=== PATIENT | female | born 1990 | race Caucasian/White ===

== ENCOUNTER 2018-08-11 09:12 | Outpatient (REF) | payer SELFPAY ==
--- NOTE | 2018-08-11 08:30 | PAPFT_PTH ---
PATIENT: Shakira Keating LOC: [facility] U#:[id number] AGE/SX: 27/F ROOM: RE08/11/[address]: CYN Levin : 1990 BED: DIS: 08/11/2018 SPEC #: [id number] RECD: 08/11/18 12:52 STATUS: TITI REQ #: [id number] TREVOR: 08/11/18 08:[address]: Lilia Thapa DEPT: [facility] Cytology RECD BY: Ines Massey ENTERED: 08/11/18 12:52 SP TYPE: PAPFT OTHR DR: Shelly Miller Tissues: 1 - CX/ENDOCX FOR PAP SMEARS Procedures: PAP THIN PREP/UVM Screening Comments: [id number]
== END 2018-08-11 09:32 ==
LOC: LBN 09:12
PROVIDERS: PCP Nurse Practitioner; Visit Provider Nurse Practitioner Family
DX: Z12.4 Encounter for screening for malignant neoplasm of cervix (principal)
CPT/HCPCS: 88142

== ENCOUNTER 2018-12-06 12:15 | Outpatient (REF) | payer BC, SELFPAY ==
[2018-12-06 13:04] LABS: Iron 116 ug/dL (50-175); Total Iron Binding Capacity 269 ug/dL (250-450); Transferrin Sat 43 % (15-50)
[2018-12-06 13:05] LABS: Abs Immature Grans 0.01 k/cumm (0.0-0.09); Absolute Basophil Count 0.02 k/cumm (0.0-0.2); Absolute Eosinophil Count 0.21 k/cumm (0.0-0.7); Absolute Lymphocyte Count 1.16 k/cumm (1.2-3.4); Absolute Monocyte Count 0.46 k/cumm (0.11-0.7); Absolute Neutrophil Count 3.18 k/cumm (1.2-6.7); Basophils % 0.4; Eosinophils % 4.2; HCT 44.9 % (36.0-46.0); HGB 15.6 g/dL (12.0-15.5); Immature Grans % 0.2; Mean Corp. HGB Concentration 34.7 g/dL (32.0-36.0); Mean Corpuscular Hemoglobin 31.6 pg (27.0-33.0); Mean Corpuscular Volume 90.9 fL (80-95); Mean Platelet Volume 10.1 fL (8.0-11.0); Monocytes % 9.1; Neutrophils % 63.1; Platelet Count 263 x1000/uL (130-400); RBC 4.94 m/cumm (4.00-5.20); RBC Distribution Width 12.5 % (11.7-14.6); White Blood Cell Count 5.04 k/cumm (4.4-10.8)
[2018-12-06 13:30] LABS: ALT 20 U/L (12-78); AST 19 U/L (15-37); Albumin 4.5 g/dL (3.4-5.0); Alkaline Phosphatase 66 U/L (46-116); Anion Gap 7.9 mmol/L (3-11); BUN 13 mg/dL (7-18); Bilirubin, Total 0.8 mg/dL (0.2-1.0); CO2 29.1 mmol/L (21.0-32.0); CREATININE 0.93 mg/dL (0.55-1.02); Calcium 9.4 mg/dL (8.5-10.1); Chloride 105 mmol/L (98-107); Ferritin 143 ng/mL (8-388); Glucose 66 mg/dL (70-100); Potassium 4.1 mmol/L (3.5-5.1); Sodium 142 mmol/L (136-145); TSH (W/Ref FT4) 1.24 uIU/mL (0.358-3.74)
[2018-12-07 10:41] LABS: HIV-1/2 Ag & Ab Screen Negative (NEGAT)
[2018-12-07 11:17] LABS: Lyme Ab w Rflx to Lyme Confirm Negative
== END 2018-12-06 12:35 ==
LOC: NCHCN 12:15
PROVIDERS: PCP Nurse Practitioner; Visit Provider Nurse Practitioner
DX: Z00.00 Encounter for general adult medical examination without abnormal findings (principal); Z13.0 Encounter for screening for diseases of the blood and blood-forming organs and certain disorders involving the immune mechanism; Z13.29 Encounter for screening for other suspected endocrine disorder; Z11.4 Encounter for screening for human immunodeficiency virus [HIV]; Z13.228 Encounter for screening for other metabolic disorders
CPT/HCPCS: 80053; 87389; 82728; 83540; 83550; 84443; 85025; 86618

== ENCOUNTER 2019-06-27 17:38 | Emergency (ER) | payer BC, SELFPAY ==
[2019-06-27 17:50] VITALS: BP 119/69; PULSE 77; RESP 16; TEMP 36.8; O2SAT 100
--- NOTE | 2019-06-27 17:56 | ED.GENADUL_ITS ---
Discharge Plan Disposition Patient Disposition: HOME Condition: Stable Discharge Details Chief Complaint: Orthopedic Clinical Impression: Pain of right forearm Primary Care Provider: Margo Guillermo ED Provider: Finn Olivo Home Meds and New Rx's Prescriptions: No Action dextroamphetamine-amphetamine [Adderall] 10 MG tablet 10 mg PO BID RF: 0 naproxen [Naprosyn] 500 MG tablet 500 mg PO Q12H PRN Qty: 30 RF: 3 Mirena 1 EACH intrauterine device 1 ea Intrauterine ONCE Qty: 1 RF: 0 acetaminophen [Tylenol] 325 MG tablet 650 mg PRN RF: 0 Discharge Instructions Additional Instructions: you can take 1000mg tylenol and 600mg ibuprofen every 6 hours for pain as needed if pain continues in a week see your primary care provider try to avoid boxing or heavy lifting with the arm until you are pain free Medical Decision Making 28 yo female comes in with right forearm pain. She states it started 15 days ago while at her boxing gym. Denies other trauma, no rashes or fevesr. Still has pain in the mid right forearm so came here. Has no pain in the hand or wrist on palpation and both have full rom with intact sensation and pulses. no pain in the elbow. Suspect contusion vs tendonitis,but will xray to eval for fx xray negative on my read. Advised f/u with pcp if pain continues as she may need mri or further outaptient testing Differential Diagnosis contusion, fx, tendonitis Imaging Data Radiologic Study: Attestation: I personally reviewed and interpreted this imaging study as follows: Imaging: X-Ray My impression: no acute findings HPI General Mode of arrival: ambulatory . Date/Time Provider Initiated Documentation: 06/27/19 17:47 . Limitations to Documentation: no limitations . Information obtained by: patient . History of Present Illness 28 year old F presents to the emergency department with the chief complaint of right forearm pain, described as moderate, Quality is described as aching, and is localized to the right and upper extremity. Patient started experiencing this day(s) (15) No relieving factors improve symptom(s), No exacerbating factors reported . Related Data Home Medications Medication Instructions Recorded Confirmed acetaminophen [Tylenol] 650 mg PRN 03/03/14 06/27/19 dextroamphetamine-amphetamine 10 mg PO BID tab-cap 05/16/17 06/27/19 [Adderall 10 Mg Tablet] naproxen [Naprosyn] 500 mg PO Q12H PRN #30 tab-cap 05/16/17 06/27/19 levonorgestrel [Mirena] 1 ea INTRAUTERINE ONCE #1 implant 08/25/17 06/27/19 Previous Rx's Medication Instructions Recorded levonorgestrel [Mirena] 1 ea INTRAUTERINE ONCE #1 implant 08/25/17 Allergies Allergy/AdvReac Type Severity Reaction Status Date / Time Iodine and Iodide Containing Allergy Unverified 06/27/19 17:52 Produc SHRIMP Allergy Intermediate UPSET Uncoded 06/27/19 17:52 STOMACH General Stated Complaint: Orthopedic ANJELICA: 4 Review of Systems Review of Systems All systems reviewed & are unremarkable except as noted in HPI and below Constitutional Denies weakness Cardiovascular Denies chest pain and Denies dyspnea Respiratory Denies cough and Denies dyspnea Gastrointestinal Denies nausea and Denies vomiting Integumentary/Breasts Denies rash Neurologic Denies weakness Endocrine Denies heat intolerance FORMERLY [facility] Medical History (Updated 08/11/18 @ 09:01 by Lilia Thapa NP) IUD surveillance (Acute 05/10/16) Family History Mother No problems noted. Social History Smoking/Tobacco Use Status: Never Drug use: Never Exam Const General: no acute distress Orientation: alert HENMT Head: normal to inspection Ears: external ears normal General nose exam: external nose normal Mouth: moist mucous membranes Eyes General: appearance normal, both eyes and all related structures Neck Neck: normal visual inspection Resp Effort & Inspection: normal respiratory effort and able to speak in complete sentences Cardio Rate: regular rate Skin General skin exam: no rashes or lesions noted Neuro General: alert and oriented x3 Extrem General: normal to inspection Psych Mental Status: mental status grossly normal Course Vital Signs Temperature 36.8 C 06/27/19 17:50 Pulse 77 06/27/19 17:50 Respiratory Rate 16 06/27/19 17:50 Blood Pressure 119/69 06/27/19 17:50 Pulse Oximetry 100 06/27/19 17:50 Temperature 36.8 C 06/27/19 17:50 Temperature Source Skin 06/27/19 17:50 Pulse 77 06/27/19 17:50 Respiratory Rate 16 06/27/19 17:50 Respiratory Effort Non-Labored 06/27/19 17:50 Blood Pressure 119/69 06/27/19 17:50 Blood Pressure Position Sitting 06/27/19 17:50 Pulse Oximetry 100 06/27/19 17:50 Oxygen Delivery Method Room Air 06/27/19 17:50 Oxygen Flow Rate 0 06/27/19 17:50 Pain Level 7 06/27/19 17:50
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
== END 2019-06-27 18:35 | disposition home or self-care (01) ==
PROVIDERS: Emergency Provider Emergency Medicine; PCP Nurse Practitioner Family
DX: M79.631 Pain in right forearm (principal)
CPT/HCPCS: 99283; 73090

== ENCOUNTER 2019-09-18 13:43 | Outpatient (CLI) | payer BC, SELFPAY ==
[2019-09-18 14:39] LABS: HCT 42.1 % (36.0-46.0); HGB 14.6 g/dL (12.0-15.5); Mean Corp. HGB Concentration 34.7 g/dL (32.0-36.0); Mean Corpuscular Hemoglobin 31.6 pg (27.0-33.0); Mean Corpuscular Volume 91.1 fL (80-95); Mean Platelet Volume 9.5 fL (8.0-11.0); Platelet Count 269 x1000/uL (130-400); RBC 4.62 m/cumm (4.00-5.20); RBC Distribution Width 12.4 % (11.7-14.6); White Blood Cell Count 6.37 k/cumm (4.4-10.8)
== END 2019-09-18 14:03 ==
PROVIDERS: PCP Nurse Practitioner Family; Visit Provider Obstetrics & Gynecology
DX: Z30.2 Encounter for sterilization (principal); Z01.818 Encounter for other preprocedural examination; Z01.812 Encounter for preprocedural laboratory examination
CPT/HCPCS: 36415; 85027; 85014; 85018

== ENCOUNTER 2019-09-19 07:39 | Day surgery (SDC) | payer BC, SELFPAY ==
[2019-09-19 08:06] VITALS: BP 112/75; PULSE 75; RESP 16; TEMP 37.2; O2SAT 98
[2019-09-19] MEDS: Lactated Ringers 1,000 ML 125 ML IV (08:40)
[2019-09-19] MEDS: Scopolamine 1 MG/3 DAYS PATCH TD (09:40)
--- NOTE | 2019-09-19 10:15 | FALL_PTH ---
PATIENT: Shakira Keating LOC: [facility] U#:[id number] AGE/SX: 28/F ROOM: RE09/19/[address]: Toan Lott MD : 1990 BED: DIS: 09/19/2019 SPEC #: [id number] RECD: 09/19/19 12:54 STATUS: TITI REQ #: [id number] TREVOR: 09/19/19 10:[address]: Toan Lott DEPT: Surgical Specimen RECD BY: Ines Massey ENTERED: 09/19/19 12:55 SP TYPE: Fall OTHR DR: Margo Guillermo Tissues: 1 - FALLOPIAN TUBE (STERILIZATION) 2 - FALLOPIAN TUBE (STERILIZATION) Procedures: GROSS AND MICRO LEVEL 2 Comments: [id number]
[2019-09-19] MEDS: Bupivacaine 0.25% Pres-Free 30 ML VIAL (10:30)
[2019-09-19 10:39] VITALS: BP 113/62; PULSE 67; RESP 16; TEMP 36.9; O2SAT 97
[2019-09-19 10:44] VITALS: BP 113/62; PULSE 55; RESP 17; TEMP 36.9; O2SAT 98
[2019-09-19 10:49] VITALS: BP 107/63; PULSE 54; RESP 16; TEMP 36.9; O2SAT 97
[2019-09-19 11:04] VITALS: BP 110/70; PULSE 64; RESP 16; TEMP 36.7; O2SAT 100
[2019-09-19 11:45] VITALS: BP 113/71; PULSE 60; RESP 16; TEMP 37; O2SAT 99
--- NOTE | 2019-09-19 15:17 | W.PM.OP ---
Date of service: 09/19/19 Time of Service: 15:17 Operative Note Operative Note DATE OF PROCEDURE: 09/19/19 PRE-OP DIAGNOSIS: Sterilization POST-OP DIAGNOSIS: same PROCEDURE: Laparoscopic bilateral salpingectomy SURGEON: Toan Lott ANESTHESIA: MAXIMILIANO ESTIMATED BLOOD LOSS: 10 PATHOLOGY: other (Bilateral fallopian tubes) COMPLICATIONS: None Patient was transported to: PACU Patient's condition: stable Findings: 1. Normal-appearing uterus tubes and ovaries. 2. 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 The patient was prepped and draped in usual sterile manner. The skin and subcutaneous tissues at the umbilicus were infiltrated with 0.25% Marcaine solution. A small infraumbilical skin incision was then made with a #15 blade scalpel. Sharp dissection was carried down to the underlying layer fascia. The fascia was grasped and elevated with 2 Marcy clamps and incised sharply with a scalpel. The peritoneum was entered sharply with a hemostat. T so wo S retractors were placed and 2 sutures of 0 Vicryl were placed on either side of the fascial incision. A 10 mm balloon port was placed. The abdomen was insufflated to approximately 14 mmHg with carbon dioxide. Two 5 mm ports were placed under direct visualization in the right lower and right upper quadrant. The right fallopian tube was grasped and dissection was carried across the mesosalpinx with the LigaSure device. Dissection was carried to the proximal fallopian tube which was transected. The fallopian tube was removed from the abdomen. Attention was then turned to the opposite side where similar procedure was carried out. Excellent hemostasis noted. Both fallopian tubes were submitted and off the field to pathology. The 5 mm ports were removed under direct visualization. The abdomen was desufflated. The 10 mm port was removed. The fascia at the umbilicus was closed with 2 previously placed sutures of 0 Vicryl. 2 additional sutures of 0 Vicryl were used to reinforce the repair. The skin incisions were each closed with interrupted sutures of 4 Monocryl and Dermabond was applied. The procedure concluded at this point. Sponge, lap, and is needle counts were correct at conclusion of the procedure and the patient was transferred to PACU in stable condition.
== END 2019-09-19 12:38 | disposition home or self-care (01) ==
PROVIDERS: PCP Nurse Practitioner Family; Visit Provider Obstetrics & Gynecology
PROC: (CPT 58661; principal; 2019-09-19 09:15)
DX: Z30.2 Encounter for sterilization (principal)
CPT/HCPCS: 58661; 81025; 88302; J1885; J2405; J3010

== ENCOUNTER 2019-12-07 10:43 | Outpatient (REF) | payer BC, SELFPAY ==
[2019-12-07 13:32] LABS: Abs Immature Grans 0.02 k/cumm (0.0-0.09); Absolute Basophil Count 0.02 k/cumm (0.0-0.2); Absolute Eosinophil Count 0.21 k/cumm (0.0-0.7); Absolute Lymphocyte Count 1.46 k/cumm (1.2-3.4); Absolute Monocyte Count 0.46 k/cumm (0.11-0.7); Absolute Neutrophil Count 3.94 k/cumm (1.2-6.7); Basophils % 0.3; Eosinophils % 3.4; HCT 42.8 % (36.0-46.0); HGB 14.6 g/dL (12.0-15.5); Immature Grans % 0.3 %; Lymphocytes % 23.9; Mean Corp. HGB Concentration 34.1 g/dL (32.0-36.0); Mean Corpuscular Hemoglobin 31.1 pg (27.0-33.0); Mean Corpuscular Volume 91.1 fL (80-95); Mean Platelet Volume 10.1 fL (8.0-11.0); Monocytes % 7.5; Neutrophils % 64.6; Platelet Count 276 x1000/uL (130-400); White Blood Cell Count 6.11 k/cumm (4.4-10.8)
[2019-12-07 14:10] LABS: ALT 35 U/L (14-59); AST 18 U/L (15-37); Alkaline Phosphatase 59 U/L (46-116); Anion Gap 5.5 mmol/L (3-11); BUN 21 mg/dL (7-18); Bilirubin, Total 0.6 mg/dL (0.2-1.0); CO2 28.5 mmol/L (21.0-32.0); CREATININE 0.93 mg/dL (0.55-1.02); Calculated LDL 62 mg/dL; Chloride 107 mmol/L (98-107); Cholesterol 134 mg/dL (<200); Glucose 86 mg/dL (74-106); HDL Cholesterol 64 mg/dL (40-60); Potassium 4.2 mmol/L (3.5-5.1); Sodium 141 mmol/L (136-145); Total Protein 6.9 g/dL (6.4-8.2); Triglyceride 44 mg/dL (<150); Vitamin B12 423 pg/mL (193-986)
[2019-12-07 14:22] LABS: ESR 9 mm/hr (0-20)
[2019-12-07 14:36] LABS: C-Reactive Protein 0.13 mg/dL (0.0-0.3)
== END 2019-12-07 11:03 ==
LOC: NCHCN 10:43
PROVIDERS: PCP Nurse Practitioner Family; Visit Provider Nurse Practitioner Family
DX: R53.83 Other fatigue (principal); Z00.00 Encounter for general adult medical examination without abnormal findings; Z13.220 Encounter for screening for lipoid disorders; Z13.228 Encounter for screening for other metabolic disorders
CPT/HCPCS: 80053; 80061; 85652; 82607; 85025; 86140

== ENCOUNTER 2020-02-13 08:50 | Outpatient (CLI) | payer BC, SELFPAY ==
[2020-02-15 08:35] LABS: COVID-19 RT-PCR Result Not Detected
== END 2020-02-13 09:10 ==
PROVIDERS: PCP Nurse Practitioner Family; Visit Provider Specialist/Technologist Athletic Trainer
DX: Z20.828 Contact with and (suspected) exposure to other viral communicable diseases (principal); Z11.59 Encounter for screening for other viral diseases; R51 Headache
CPT/HCPCS: 87449; U0003

== ENCOUNTER 2020-03-04 01:21 | Outpatient (CLI) | payer BC, SELFPAY ==
--- NOTE | 2020-03-04 | DI.MRI_ITS ---
EXAM: MR BRAIN WO CLINICAL HISTORY: ATYPICAL HEADACHE, R51, NEW ONSET TECHNIQUE: Multiplanar multisequence MRI of the brain was performed. COMPARISON: No exams were available for comparison FINDINGS: The ventricular system is normal in appearances. No signal abnormality identified in the brain. The orbital and temporal bone structures appears intact as does the pituitary. Diffusion weighted imaging shows No evidence of infarction. Susceptibility weighted imaging shows no evidence of intracranial hemorrhage. There is normal flow void in the [place] of Agustin vasculature. IMPRESSION: Normal brain MRI DATA REPOSITORY:
== END 2020-03-04 01:41 ==
PROVIDERS: PCP Nurse Practitioner Family; Visit Provider Specialist/Technologist Athletic Trainer
DX: R51 Headache (principal)
CPT/HCPCS: 70551

== ENCOUNTER 2020-03-14 01:44 | Outpatient (CLI) | payer BC, SELFPAY ==
--- NOTE | 2020-03-14 08:02 | DI.RAD_ITS ---
EXAM: XR CERVICAL SPINE COMP 4-5V CLINICAL HISTORY: ATYPICAL HEADACHE, R51. TECHNIQUE: 2D digital imaging was performed. COMPARISON: No exams were available for comparison FINDINGS: BONES: No fracture or destructive lesion. The vertebral bodies and posterior elements are intact. DISKS: Intervertebral disc spaces are maintained. ALIGNMENT: Cervical spinal alignment is within normal limits. The odontoid and atlantoaxial articulat ions are normal. SOFT TISSUE: Normal. The lung apices are clear. IMPRESSION: Unremarkable radiographs of the cervical spine. DATA REPOSITORY: RADIATION DOSE DELIVERED:
== END 2020-03-14 02:04 ==
PROVIDERS: PCP Nurse Practitioner Family; Visit Provider Nurse Practitioner Family
DX: R51 Headache (principal)
CPT/HCPCS: 72050

== ENCOUNTER 2020-10-14 11:30 | Outpatient (REF) | payer BC, SELFPAY ==
--- NOTE | 2020-10-14 10:30 | PAPFT_PTH ---
PATIENT: Shakira Keating LOC: [facility] U#:[id number] AGE/SX: 29/F ROOM: RE10/14/[address]: CYN Levin : 1990 BED: DIS: 10/14/2020 SPEC #: [id number] RECD: 10/14/20 12:57 STATUS: TITI REQ #: [id number] RTEVOR: 10/14/20 10:[address]: Lilia Thapa DEPT: [facility] Cytology RECD BY: Ines Massey ENTERED: 10/14/20 12:57 SP TYPE: PAPFT OTHR DR: Margo Guillermo Tissues: 1 - CX/ENDOCX FOR PAP SMEARS Procedures: PAP THIN PREP/[facility]VM Screening Comments: [id number] ([facility])
== END 2020-10-14 11:50 ==
LOC: LBN 11:30
PROVIDERS: PCP Nurse Practitioner Family; Visit Provider Nurse Practitioner Family
DX: Z12.4 Encounter for screening for malignant neoplasm of cervix (principal)
CPT/HCPCS: 88142

== ENCOUNTER 2021-04-03 12:54 | Outpatient (CLI) | payer BC, SELFPAY ==
--- NOTE | 2021-04-03 | DI.RAD_ITS ---
Exam(s) XR ANKLE LT COMPLETE EXAM: XR ANKLE LT COMPLETE CLINICAL HISTORY: INJURY OF UNSPECIFIED BODY REGION; SEQUELAE, T14.8XXS TECHNIQUE: 2D digital imaging was performed. COMPARISON: No exams were available for comparison FINDINGS: BONES: No acute fracture is present. No bony destructive lesion is seen. JOINTS:The ankle mortise is normally aligned. SOFT TISSUE: Soft tissue swelling laterally. IMPRESSION: No acute fracture or dislocation. Soft tissue swelling of the ankle laterally. DATA REPOSITORY: RADIATION DOSE DELIVERED:
== END 2021-04-03 13:14 ==
PROVIDERS: PCP Nurse Practitioner Family; Visit Provider Family Medicine
DX: M25.572 Pain in left ankle and joints of left foot (principal); M79.89 Other specified soft tissue disorders
CPT/HCPCS: 73610

== ENCOUNTER → 2021-08-21 03:26 | Outpatient (CLI) | payer BC, SELFPAY ==
--- NOTE | 2021-08-21 | DI.MRI_ITS ---
Exam(s) MR LOWER JOINT LT WO EXAM: MR LOWER JOINT LT WO CLINICAL HISTORY: LT ANKLE PAIN,M25.572 TECHNIQUE: Multiplanar multisequence MRI was performed without intravenous contrast. COMPARISON: CR XR ANKLE LT COMPLETE from 04/03/2021 CR XR ANKLE LT COMPLETE from 04/03/2021 FINDINGS: BONES/JOINTS: No fracture or contusion pattern. No bone lesions identified. The talar dome is smooth. The ankle mortise is maintained. No joint effusion is present. LIGAMENTS: The tibiofibular and calcaneofibular ligaments are intact. The talofibular ligaments are i ntact. The deltoid ligament is intact. The syndesmosis is unremarkable. Sinus tarsi is normal. MUSCULOTENDINOUS STRUCTURES: Achilles tendon: There does appear to be minimal hyperintense signal on the sagittal STIR images in t he Achilles tendon at its insertion site. There is a small amount of fluid seen in the retrocalcanea l bursa. There also appears to be minimal increased signal in the posterior to the tendon. 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 Plantar fascia: Unremarkable. Anterior Extensor tendons: Unremarkable. Posterior Tibialis: There is a 1 x 1.2 cm area adjacent to or comprising the posterior tibialis tendo n near its insertion onto the navicular. This area is isointense to muscle on the T1 and T2 weighted images. There is minimal associated edema on the T2 weighted images. On the plain film there does not appear to be an accessory ossicle in this region. Flexor Digitorum longus: Unremarkable. Flexor Hallucis longus: Unremarkable. Peroneus longus: Unremarkable. Peroneus brevis:Unremarkable. SOFT TISSUES: Unremarkable. OTHER FINDINGS: None. IMPRESSION: 1. 1 x 1.2 cm area adjacent to a comprising the distal posterior tibialis tendon near its insertion o nto the navicular. Differential considerations include partial tear of the posterior tibialis tendon , tendinosis, deltoid ligament sprain/fibrosis. X-ray of the foot may be obtained for further evalua tion. Please correlate with patient's site of pain. 2. 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 DATA REPOSITORY:
== END ==
PROVIDERS: PCP Nurse Practitioner Family; Visit Provider Orthopaedic Surgery
DX: M25.572 Pain in left ankle and joints of left foot (principal); R93.6 Abnormal findings on diagnostic imaging of limbs
CPT/HCPCS: 73721

== ENCOUNTER 2021-11-12 11:43 | Outpatient (REF) | payer BC, SELFPAY ==
--- NOTE | 2021-11-12 10:30 | PAPFT_PTH ---
PATIENT: Shakira Keating LOC: [facility] U#:[id number] AGE/SX: 31/F ROOM: RE11/12/[address]: CYN Levin : 1990 BED: DIS: 11/12/2021 SPEC #: [id number] RECD: 11/12/21 12:49 STATUS: TITI REQ #: [id number] TREVOR: 11/12/21 10:[address]: Lilia Thapa DEPT: [facility] Cytology RECD BY: Ines Massey ENTERED: 11/12/21 12:49 SP TYPE: PAPFT OTHR DR: Margo Guillermo Tissues: 1 - CX/ENDOCX FOR PAP SMEARS Procedures: PAP THIN PREP/UVM Screening HPV DNA PROBE Comments: [id number]
== END 2021-11-12 11:44 | disposition home or self-care (01) ==
LOC: LBN 11:43
PROVIDERS: PCP Nurse Practitioner Family; Visit Provider Nurse Practitioner Family
DX: Z12.4 Encounter for screening for malignant neoplasm of cervix (principal); Z11.51 Encounter for screening for human papillomavirus (HPV)
CPT/HCPCS: 88142; 87624

== ENCOUNTER 2021-11-17 01:00 | Outpatient (CLI) | payer BC, SELFPAY ==
--- NOTE | 2021-11-17 09:17 | DI.MAMMO_ITS ---
Exam(s) MAMMO SCREENING EXAM: MAMMO SCREENING CLINICAL HISTORY: screening - + Fam History TECHNIQUE: Bilateral full field digital CC and MLO mammographic images were obtained with 3D tomosyn thesis and utilizing computer aided detection (CAD). COMPARISON: None. FINDINGS: Masses/Architectural Distortion: None seen. Microcalcifications: No suspicious pleomorphic-type are seen. Skin Thickening/Nipple Retraction: None. IMPRESSION: 1. No significant interval change with no specific features of malignancy noted. 2. Unless there is more urgent need, screening mammography is recommended, as per [place] [employer] guidelines. BI-RADS Category 1 - Negative Breast Density - Category D - Extremely dense Breast density category C or D implies that the patient has dense breast tissue. Dense breast tissue is very common and is not abnormal but dense breast tissue can make it harder to find cancer on a ma mmogram. Also, dense breast tissue may increase their breast cancer risk. This information about the result of the mammogram report was provided to the patient to raise their awareness. Use this report when you speak with the patient about their risks for breast cancer, which includes their family hist ory. At that time, you may recommend for more screening tests (Ultrasound or MRI) as they might be us eful based on their risk. A negative radiographic report should not delay biopsy if a dominant or clinically suspicious mass is present. Up to ten percent of cancers are not identified on mammography. A negative report may reinforce clinical impression. Adenosis and dense breasts may obscure an underlying neoplasm. False positive reports average 6 to 10%. Patient will receive a letter notifying them of these results.
== END 2021-11-17 01:20 ==
PROVIDERS: PCP Nurse Practitioner Family; Visit Provider Nurse Practitioner Family
DX: Z12.31 Encounter for screening mammogram for malignant neoplasm of breast (principal); R92.8 Other abnormal and inconclusive findings on diagnostic imaging of breast
CPT/HCPCS: 77063; 77067

== ENCOUNTER 2023-07-27 16:44 | Outpatient (REF) | payer BC, OTHER, SELFPAY ==
[2023-07-27 17:24] LABS: HCT 43.8 % (36.0-46.0); HGB 15.2 g/dL (11.2-15.7); MCH 31.7 pg (27.0-33.0); MCHC 34.7 % (32.0-36.0); MCV 91 fL (80-95); MPV 10.1 fL (8.0-11.0); Platelet Count 292 10^3/uL (130-400); RBC 4.79 10^6/uL (3.93-5.22); RDW 11.8 % (11.7-14.6); RDW-SD 39.6 fL; WBC 6.61 10^3/uL (4.4-10.8)
[2023-07-27 18:05] LABS: ALT 23 U/L (14-59); AST 15 U/L (15-37); Albumin 4.2 g/dL (3.4-5.0); Alkaline Phosphatase 57 U/L (46-116); Anion Gap 8.6 mmol/L (3-11); BUN 24 mg/dL (7-18); Bilirubin, Total 0.5 mg/dL (0.2-1.0); CO2 26.4 mmol/L (21.0-32.0); Calcium 9.2 mg/dL (8.5-10.1); Chloride 103 mmol/L (98-107); Estimated GFR 77.24 (mL/min/1.73m2); Glucose 101 mg/dL (74-106); Sodium 138 mmol/L (136-145); TSH (W/Ref FT4) 1.42 uIU/mL (0.36-3.74); Total Protein 7.3 g/dL (6.4-8.2)
[2023-07-27 18:07] LABS: Iron 108 ug/dL (50-170); Total Iron Binding Capacity 267 ug/dL (250-450); Transferrin Sat 40 % (15-50)
[2023-07-29 11:42] LABS: Lyme Ab w Rflx to Lyme Confirm Negative (Negative)
[2023-07-31 18:18] LABS: Anaplasma phagocytophilum Negative (Negative); B. miyamotoi PCR Negative (Negative); Babesia divergens/MO-1 Negative (Negative); Babesia duncani Negative (Negative); Babesia microti Negative (Negative); Ehrlichia chaffeensis Negative (Negative); Ehrlichia ewingii/canis Negative (Negative); Ehrlichia muris eauclairensis Negative (Negative)
== END 2023-07-27 16:45 | disposition home or self-care (01) ==
LOC: NCHCN 16:44
PROVIDERS: PCP Nurse Practitioner Family; Visit Provider Nurse Practitioner Family
DX: R53.83 Other fatigue (principal)
CPT/HCPCS: 80053; 85027; 87798; 83540; 83550; 84443; 86618

== ENCOUNTER 2023-10-10 19:22 | Emergency (ER) | payer OTHER, SELFPAY ==
[2023-10-10 19:24] VITALS: BP 141/83; PULSE 106; RESP 17; TEMP 36.8; O2SAT 100
--- NOTE | 2023-10-10 20:02 | ED.GENADUL_ITS ---
Discharge Plan Disposition Patient Disposition: Home Discharge Details Clinical Impression: Abscess Primary Care Provider: Margo Guillermo ED Provider: Tarun Olivo Home Meds and New Rx's Prescriptions: New cephalexin 500 mg capsule 500 mg PO QID 10 Days Qty: 40 0RF doxycycline hyclate 100 mg tablet 100 mg PO BID 10 Days Qty: 20 0RF No Action multivitamin Tablet 1 tab PO DAILY naproxen [Naprosyn] 500 mg tablet 500 mg PO Q12H PRN Qty: 30 0RF Hold Instructions: Pt Stopped/Never Started dextroamphetamine-amphetamine [Adderall] 10 mg tablet 10 mg PO BID Rx Instructions: administer doses at least 4-6 hours apart acetaminophen [Tylenol] 325 MG tablet 650 mg PO PRN Discharge Instructions Instructions: Abscess (ED) Additional Instructions: You are seen in the emergency department for an abscess on your left elbow. We performed an incision and drainage and got a small amount of pus out of the area. We applied a bandage. Change the bandage once to twice daily and keep the area clean and dry. Take the antibiotics for the full course even if you start to feel better. Follow-up with your primary care doctor. Return if you develop worsening symptoms. Medical Decision Making 32-year-old female presents with an abscess on the left elbow. Unclear etiology. She is adamant that she does not have an STI and clinically does not appear to be gonococcal rash or infection so no role for testing for this at this time especially given no STI type symptoms. Performed an incision and drainage after verbally consenting the patient. Got a small amount of pus and some blood out of the area. Applied a clean bandage. Will start on antibiotics. Not in the distribution of the olecranon bursa so I do not think that this is an infected olecranon bursitis. Not circumferential and no pain with ranging of the elbow so do not think that this is related to an elbow or septic joint. Patient agreeable to going home on oral antibiotics. Will discharge with primary care follow-up. HPI General Date/Time Provider Initiated Documentation: 10/10/23 19:34 . Limitations to Documentation: no limitations . Information obtained by: patient . HPI Narrative: 32-year-old female presents with a rash/abscess on her left elbow. Says this been going on for the last few days. She got a tattoo a few weeks ago and had a full body rash after this. It was not on the same extremity. She does not notice any other injury to the left elbow. She does not have pain with moving the elbow and just has the abscess near the left outer edge of the elbow. No fevers or chills. Endorses some weakness but denies any other systemic symptoms. No fevers. No dysuria or frequency or any vaginal bleeding or discharge. She says she is in a monogamous relationship and she has no concerns about sexually transmitted infections. Related Data Home Medications Medication Instructions Recorded Confirmed acetaminophen 325 mg tablet 650 mg PO PRN 03/03/14 10/10/23 (Tylenol) naproxen 500 mg tablet (Naprosyn) 500 mg PO Q12H PRN #30 tab-caps 11/19/20 10/10/23 dextroamphetamine-amphetamine 10 10 mg PO BID 03/17/21 10/10/23 mg tablet (Adderall) multivitamin 1 tab PO DAILY 12/16/22 10/10/23 cephalexin 500 mg capsule 500 mg PO QID 10 days #40 caps 10/10/23 doxycycline hyclate 100 mg tablet 100 mg PO BID 10 days #20 tabs 10/10/23 Previous Rx's Medication Instructions Recorded naproxen 500 mg tablet (Naprosyn) 500 mg PO Q12H PRN #30 tab-caps 11/19/20 cephalexin 500 mg capsule 500 mg PO QID 10 days #40 caps 10/10/23 doxycycline hyclate 100 mg tablet 100 mg PO BID 10 days #20 tabs 10/10/23 Allergies Allergy/AdvReac Type Severity Reaction Status Date / Time diclofenac Allergy Verified 10/10/23 19:52 Iodine and Iodide Containing Allergy Verified 10/10/23 19:52 Produc SHRIMP Allergy Intermediate UPSET Uncoded 10/10/23 19:52 STOMACH General Stated Complaint: GenMedical ANJELICA: 4 Review of Systems Constitutional Constitutional: Denies chills, Denies fever(s), Denies headache(s) and Reports weakness Eyes Eyes: Denies change in vision ENT Ears, Nose, Mouth, and Throat: Denies headache(s) and Denies odynophagia Cardiovascular Cardiovascular: Denies chest pain and Denies dyspnea Respiratory Respiratory: Denies dyspnea Gastrointestinal Gastrointestinal: Denies abdominal pain, Denies diarrhea, Denies nausea, Denies odynophagia and Denies vomiting Genitourinary Genitourinary: Denies dysuria Musculoskeletal Musculoskeletal: Denies myalgias Integumentary/Breasts Skin/Breast: Reports other (abscess near left elbow) Neurologic Neurologic: Denies behavioral changes, Denies headache(s) and Reports weakness Psychiatric Psychiatric: Denies behavioral changes Endocrine Endocrine: Denies heat intolerance Hematologic/Lymphatic Hematologic/Lymphatic: Denies lymphadenopathy PFSH All Active Problems Abscess (Acute) Family history of breast cancer (Acute) Migraine headache without aura (Acute) Status post tubal ligation (Acute) Medical History ADHD Surgical History H/O wisdom tooth extraction Family History Maternal Aunt Breast cancer Dx in her 30's Maternal Aunt Breast cancer Paternal Aunt Breast cancer Social History Smoking/Tobacco Use Status: Never Smoking risk assessment performed?: Yes Alcohol Intake: current Alcohol Intake frequency: a few times a week Alcohol type: wine Drug use: Occasionally Substance use type: marijuana Details: alcohol: t-1, one glass wine, marijuana: t-2, hit Household members: significant other and other current occupation: Nurse Pets and animals: Yes What type of physical activity do you participate in: walking Seatbelt use: always Do you feel safe at home: Yes Do you feel safe in your relationship?: Yes Female Reproductive History Menstrual Age of Menarche: 16 Duration of menses: 8-10 days control method: permanent sterilization History History 0 Para Hx # Term Pregnancies Multiple births Hx # Pregnancies Ectopic pregnancies AB induced Hx Number of Living Children AB spontaneous Exam Const General: cooperative Nutritional Appearance: average body habitus Orientation: alert, awake and oriented x3 HENMT Head: normal to inspection Ears: external ears normal Mouth: moist mucous membranes Eyes Pupils: PERRL EOM: EOM intact bilaterally and No nystagmus Neck Neck: full ROM and no tracheal deviation Chest Chest: normal inspection of the chest Resp Auscultation: clear to auscultation bilaterally Cardio Rate: regular rate Rhythm: regular rhythm GI Inspection: normal to inspection Palpation: soft, no guarding, not rigid and nontender Back/Spine/Pelvis Back: No no CVA tenderness Thoracic/Lumbar Spine: thoracic and lumbar spine normal to inspection Skin Other: Small area of redness fluctuance warmth and tenderness over the left lateral elbow. Not in the distribution of the olecranon bursa. Not circumferential around the elbow. Able to fully range the elbow without pain. Sensation motor and circulation intact in the bilateral upper extremities. No other rashes noted on examination. Neuro General: patient alert, patient awake and patient oriented x3 Cranial Nerves: CN's II-XI intact bilaterally, PERRL and no nystagmus Cognition: normal cognition Motor: muscle tone normal throughout and strength 5/5 throughout Sensory Exam: no sensory deficits noted Extrem General: normal to inspection Course Vital Signs Vital signs: Vital Signs Temperature 36.8 C 10/10/23 19:24 Pulse 106 H 10/10/23 19:24 Respiratory Rate 17 10/10/23 19:24 Blood Pressure 141/83 H 10/10/23 19:24 Pulse Oximetry 100 10/10/23 19:24 Temperature 36.8 C 10/10/23 19:24 Temperature Source Axillary 10/10/23 19:24 Pulse 106 H 10/10/23 19:24 Respiratory Rate 17 10/10/23 19:24 Respiratory Effort Normal 10/10/23 19:55 Blood Pressure 141/83 H 10/10/23 19:24 Pulse Oximetry 100 10/10/23 19:24 Pain Level 1 10/10/23 19:24 Procedures Abscess I/D Site: Other (left elbow) Side (if applicable): Left Local Anesthetic: Lidocaine 2% and With Epi Amount of anesthesia used (mL): 5 Technique: Incised with #11 Blade Amount of fluid expressed (mL): 3 Irrigation: No Packing used?: None Complications: Bleeding
[2023-10-10] MEDS: Cephalexin 500 MG CAP PO (20:14)
[2023-10-10] MEDS: Doxycycline Hyclate 100 MG CAP PO (20:15)
== END 2023-10-10 20:15 | disposition home or self-care (01) ==
PROVIDERS: Emergency Provider Student in an Organized Health Care Education/Training Program; PCP Nurse Practitioner Family
DX: L02.414 Cutaneous abscess of left upper limb (principal)
CPT/HCPCS: 99283; 99284

== ENCOUNTER 2024-04-06 11:44 | Outpatient (REF) | payer BC, SELFPAY ==
--- NOTE | 2024-04-06 08:30 | PAPFT_PTH ---
PATIENT: Shakira Keating LOC: [facility] U#:[id number] AGE/SX: 33/F ROOM: RE04/06/[address]: Domi Resendiz DO : 1990 BED: DIS: 04/06/2024 SPEC #: [id number] RECD: 04/06/24 13:25 STATUS: TITI REQ #: [id number] TREVOR: 04/06/24 08:[address]: Domi Resendiz DEPT: [facility] Cytology RECD BY: Ines Massey ENTERED: 04/06/24 13:25 SP TYPE: PAPFT OTHR DR: Margo Guillermo Tissues: 1 - CX/ENDOCX FOR PAP SMEARS Procedures: PAP THIN PREP/UVM Screening HPV DNA PROBE Comments: [id number] (CHLAMYDIA/GC)
[2024-04-09 14:56] LABS: Chlamydia Result Negative (Negative); GC Result Negative (Negative)
== END 2024-04-06 11:45 | disposition home or self-care (01) ==
LOC: LBN 11:44
PROVIDERS: PCP Nurse Practitioner Family; Visit Provider Obstetrics & Gynecology
DX: Z11.51 Encounter for screening for human papillomavirus (HPV) (principal); Z01.419 Encounter for gynecological examination (general) (routine) without abnormal findings
CPT/HCPCS: 87491; 87591; 88142; 87624

== ENCOUNTER 2025-04-09 10:39 | Outpatient (REF) | payer BC, SELFPAY ==
[2025-04-10 12:53] LABS: Chlamydia Result Negative (Negative); GC Result Negative (Negative)
== END 2025-04-09 10:40 | disposition home or self-care (01) ==
LOC: LBN 10:39
PROVIDERS: PCP Nurse Practitioner Family; Visit Provider Obstetrics & Gynecology
DX: Z20.2 Contact with and (suspected) exposure to infections with a predominantly sexual mode of transmission (principal); Z11.3 Encounter for screening for infections with a predominantly sexual mode of transmission
CPT/HCPCS: 87491; 87591; 87480; 87510; 87660

== ENCOUNTER 2025-04-09 12:33 | Outpatient (CLI) | payer BC, SELFPAY ==
[2025-04-10 09:49] LABS: Syphilis Serology (RPR) Negative (Negative)
[2025-04-10 12:30] LABS: HIV-1/2 Ag & Ab Screen Negative (Negative)
[2025-04-10 12:40] LABS: Hepatitis A Antibody IgM Negative (Negative); Hepatitis B Core Antibody Negative (Negative); Hepatitis B surface Ag Negative (Negative); Hepatitis C Ab w Rflx HCV PCR Negative (Negative)
== END 2025-04-09 12:34 | disposition home or self-care (01) ==
LOC: LBO 12:41
PROVIDERS: PCP Nurse Practitioner Family; Visit Provider Obstetrics & Gynecology
DX: Z11.3 Encounter for screening for infections with a predominantly sexual mode of transmission (principal)
CPT/HCPCS: 36415; 86704; 86709; 86803; 87340; 87389; 86592

== ENCOUNTER 2025-06-14 00:53 | Outpatient (CLI) | payer SELFPAY ==
[2025-06-17 11:55] LABS: Lyme Ab w Rflx to Lyme Confirm Negative (Negative)
[2025-06-17 17:19] LABS: B. miyamotoi PCR Negative (Negative); Babesia divergens/MO-1 Negative (Negative); Ehrlichia muris eauclairensis Negative (Negative)
== END 2025-06-14 00:54 | disposition home or self-care (01) ==
LOC: LBO 00:54
PROVIDERS: PCP Nurse Practitioner Family; Visit Provider Nurse Practitioner Family
DX: T14.90XA Injury, unspecified, initial encounter (principal); W57.XXXA Bitten or stung by nonvenomous insect and other nonvenomous arthropods, initial encounter; G47.26 Circadian rhythm sleep disorder, shift work type
CPT/HCPCS: 36415; 82533; 87798; 86618

== ENCOUNTER → 2025-10-21 02:21 | Outpatient (CLI) | payer OTHER, SELFPAY ==
--- NOTE | 2025-10-21 | DI.MAMMO_ITS ---
Exam(s) MAMMO SCREENING EXAM: MAMMO SCREENING CLINICAL HISTORY: Z12.31 Screening, Early due to family history TECHNIQUE: Bilateral full field digital CC and MLO mammographic images were obtained with 3D tomosynthesis and utilizing computer aided detection (CAD). COMPARISON: Comparison is made with prior examinations. FINDINGS: Masses/Architectural Distortion: No suspicious masses or areas of architectural distortion are present. Microcalcifications: No suspicious pleomorphic-type are seen. Skin Thickening/Nipple Retraction: None. IMPRESSION: 1. No significant interval change with no specific features of malignancy noted. 2. Unless there is more urgent need, screening mammography is recommended, as per [place] [employer] guidelines. BI-RADS Category 1 - Negative Breast Density - Category D - The breast are extremely dense, which lowers the sensitivity of the mammography. Breast density Category C or D implies that the patient has dense breast tissue. Dense breast tissue can make it harder to find cancer on a mammogram. Dense breast tissue is also associated with an increased risk of breast cancer. This information about the result of the mammogram report was provided to the patient to raise their awareness. Use this report when you speak with the patient about their risks for breast cancer, which includes their family history. At that time, you may recommend additional screening tests (Ultrasound or MRI) as these tests may add significant information. A negative radiographic report should not delay biopsy if a dominant or clinically suspicious mass is present. Up to ten percent of cancers are not identified on mammography. A negative report may reinforce clinical impression. Adenosis and dense breasts may obscure an underlying neoplasm. False positive reports average 6 to 10%. Patient will receive a letter notifying them of these results.
== END ==
LOC: DI 02:21
PROVIDERS: PCP Nurse Practitioner Family; Visit Provider Nurse Practitioner Family
DX: Z12.31 Encounter for screening mammogram for malignant neoplasm of breast (principal)
CPT/HCPCS: 77063; 77067

== ENCOUNTER 2025-11-08 08:59 | Day surgery (SDC) | payer OTHER, SELFPAY ==
--- NOTE | 2025-11-07 17:56 | ANES.PREOP_ITS ---
General Info Date of Service Date Performed: 11/08/25 Height: 5 ft 6 in Weight: 72.688 kg Body Mass Index (BMI): 25.8 Surgical Procedure: Operation Date: 11/08/25 09:05 Proposed Procedure Side Surgeon p Colonoscopy Milla Mistry MD Meds Allergies and Home Medications Allergies Allergy/AdvReac Type Severity Reaction Status Date / Time Iodine and Iodide Containing Allergy Intermediate hives Verified 11/08/25 09:23 Produc diclofenac AdvReac Mild GI upset Verified 11/08/25 09:23 SHRIMP Allergy Intermediate itchy, GI Uncoded 11/08/25 09:23 upset Home Medication ?Medication ?Instructions ?Recorded levonorgestrel (Mirena) 1 device intrauterine ONCE # 1 ea 05/08/24 bisacodyl 5 mg tablet,delayed 5 mg PO ONCE colonscopy bowel prep 09/24/25 release (Dulcolax (bisacodyl)) #4 tabs polyethylene glycol 3350 17 238 g PO ONCE colonoscopy prep 09/24/25 gram/dose oral powder #238 grams Current Visit Medications: Current Medications Generic Name Dose Route Start Last Admin Trade Name Freq PRN Reason Stop Dose Admin Ringer's Solution 1,000 mls @ 80 mls/hr 11/08/25 06:00 IV 11/08/25 23:59 INFUSION CRISTI Sodium Chloride 0 ml 11/08/25 06:00 Normal Saline Flush 10 Ml Syr IV 11/08/25 23:59 PRN PRN Sodium Chloride 0 ml 11/08/25 06:00 Normal Saline 10 Ml Vial IJ 11/08/25 23:59 DIRECTED PRN Sterile Water 0 ml 11/08/25 06:00 Water,Injection,Sterile 10 Ml Vial IJ 11/08/25 23:59 DIRECTED PRN PFSH Active Problems Active Problems: Problem Status Onset Code Encounter for screening colonoscopy Acute Z12.11 Screen for STD (sexually transmitted disease) Acute Z11.3 IUD surveillance Acute 05/08/24 Z30.431 Scalp lesion Acute L98.9 Family history of breast cancer Acute Z80.3 Migraine headache without aura Acute G43.009 Medical History Medical History Fatigue Irregular periods Sebaceous cyst head 01/25/24 ADHD Surgical History Surgical History Status post tubal ligation History of salpingectomy total 01/25/24 H/O wisdom tooth extraction Tobacco Smoking/Tobacco Use Status: Never Passive smoking exposure: No Alcohol Alcohol Intake: current Alcohol intake frequency: a few times a week Alcohol type: wine Substance Use Substance use: Occasionally Substance use type: marijuana Details: alcohol: t-1, one glass wine, marijuana: t-2, hit Prental History History 0 Para Hx # Term Pregnancies Multiple births Hx # Pregnancies Ectopic pregnancies AB induced Hx Number of Living Children AB spontaneous Vital Signs and Lab Results Vital Signs Most Recent Vital Signs in EMR: Temp Pulse Resp BP Pulse Ox 36.5 C 89 20 118/84 99 11/08/25 09:25 11/08/25 09:25 11/08/25 09:25 11/08/25 09:25 11/08/25 09:25 Anesthesia Assessment and Plan Anesthesia History Personal History: PONV Family History: No Family History of Anesthesia Complications Exercise Tolerance Exercise Tolerance: Metabolic Equivalents>4 Cardiac & Pulmonary Exam Cardiac Exam: Normal S1/S2 Heart Sounds Pulmonary Exam: Clear Bilateral Breath Sounds Implantable Cardiac Device Does patient have a Pacemaker or an ICD?: No Airway Exam Known Difficult Airway: No Mallampati Class: 2 Mouth Opening: Normal (> 3cm) Thyromental Distance: Greater than 3 cm Neck Range of Motion: Full ROM Neck Circumference: Normal Teeth Condition: Normal Dentition ASA Classification ASA Score: ASA 2 Emergency Case?: No NPO Status NPO Status: NPO Clears >2 hours, Solids >8 hours Status Status: Negative HCG Anesthesia Plan Resuscitation Status: Full Code Anesthesia Technique: General Anesthesia Airway Planned: Natural Airway Monitors Used: Standard Monitors Preoperative Comments:: 35 yo for colo. Sig PMHx: adhd Occ EtOH/cannabis. Previous Anes: PONV - lap slaping, easy mask, Mac 3 grade 1.
[2025-11-08 09:25] VITALS: BP 118/84; PULSE 89; RESP 20; TEMP 36.5; O2SAT 99
[2025-11-08] MEDS: Lactated Ringers 1,000 ML 80 ML IV (09:42)
[2025-11-08 10:08] VITALS: BMI 25.8
--- NOTE | 2025-11-08 10:09 | HPE_ITS ---
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 She reports no changes in bowel habits or presence of blood in her stool. The risks and benefits of the procedure were discussed with her and consent was obtained prior to the procedure. Will plan for screening colonoscopy. 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 She reports no changes in bowel habits or presence of blood in her stool. She denies any recent changes in her health. Review of Systems Cardiovascular Cardiovascular: Denies chest pain and Denies dyspnea Respiratory Respiratory: Denies dyspnea Gastrointestinal Gastrointestinal: Denies abdominal pain, Denies nausea and Denies vomiting Genitourinary Genitourinary: Denies dysuria Musculoskeletal Musculoskeletal: Denies arthralgias and Denies muscle weakness PFSH All Active Problems Encounter for screening colonoscopy (Acute) Screen for STD (sexually transmitted disease) (Acute) IUD surveillance (Acute 05/08/24) Mirena Scalp lesion (Acute) Family history of breast cancer (Acute) Migraine headache without aura (Acute) Medical History Fatigue Irregular periods Sebaceous cyst head 01/25/24 ADHD Surgical History Status post tubal ligation History of salpingectomy total 01/25/24 H/O wisdom tooth extraction Family History Maternal Aunt Breast cancer Dx in her 30's Maternal Aunt Breast cancer Paternal Aunt Breast cancer Maternal Grandmother Thyroid disorder Father Bipolar 1 disorder Paternal Grandfather Alcohol use disorder Mother Family history of cancer Social History Smoking/Tobacco Use Status: Never Smoking risk assessment performed?: Yes Alcohol Intake: current Alcohol Intake frequency: a few times a week Alcohol type: wine Drug use: Occasionally Substance use type: marijuana Details: alcohol: t-180 one glass wine, marijuana: years ago Household members: significant other and other Housing: house current occupation: Nurse Pets and animals: Yes What type of physical activity do you participate in: walking Seatbelt use: always Do you feel safe at home: Yes Do you feel safe in your relationship?: Yes Female Reproductive History Menstrual Age of Menarche: 16 Duration of menses: 8-10 days control method: permanent sterilization History History 0 Para Hx # Term Pregnancies Multiple births Hx # Pregnancies Ectopic pregnancies AB induced Hx Number of Living Children AB spontaneous Meds Allergies and Home Medications Allergies Allergy/AdvReac Type Severity Reaction Status Date / Time Iodine and Iodide Containing Allergy Intermediate hives Verified 11/08/25 09:23 Produc diclofenac AdvReac Mild GI upset Verified 11/08/25 09:23 SHRIMP Allergy Intermediate itchy, GI Uncoded 11/08/25 09:23 upset Home Medications ?Medication ?Instructions ?Recorded ?Confirmed ?Type levonorgestrel (Mirena) 1 device intrauterine ONCE # 1 ea 05/08/24 11/08/25 Rx bisacodyl 5 mg tablet,delayed 5 mg PO ONCE colonscopy bowel prep 09/24/25 11/08/25 Rx release (Dulcolax (bisacodyl)) #4 tabs polyethylene glycol 3350 17 238 g PO ONCE colonoscopy prep 09/24/25 11/08/25 Rx gram/dose oral powder #238 grams Exam Narrative Exam Narrative: General: Well appearing, no acute distress. Skin: Good turgor, no visible rashes or lesion HEENT: Normocephalic, atraumatic CV: Regular rate Lungs: Bilateral equal chest rise, non-labored breathing Abdomen: Non-distended Extremities: Warm, well perfused Neurologic: No focal deficits Psychiatric: Alert and oriented, normal mood and affect Results Last Vital Signs Temp 36.5 C 11/08/25 09:25 Pulse 89 11/08/25 09:25 Resp 20 11/08/25 09:25 BP 118/84 11/08/25 09:25 Pulse Ox 99 11/08/25 09:25 VTE Prohylaxis Risk Level: Low Risk Contraindications: Other (preprocedure) Prophylaxis: Patient ambulatory Time Spent Time spent with Patient: <40 minutes Time was spent: preparing to see the patient(eg.review tests), obtaining and/or reviewing separately otained hiistory and counseling the patient
[2025-11-08 10:42] VITALS: BP 97/64; PULSE 70; RESP 14; TEMP 36.1; O2SAT 100
--- NOTE | 2025-11-08 10:45 | W.PM.DSUDISC ---
Date of service: 11/08/25 Discharge Plan Disposition Patient Disposition: Home Condition: Good Discharge Details Reason For Visit: Screening colonoscopy Attending Provider: Milla Mistry Primary Care Provider: Margo Guillermo Home Meds and New Rx's Prescriptions: Continued Mirena 21 mcg/24 hr (8 yrs) 52 mg intrauterine device 1 device intrauterine ONCE Qty: 1 0RF Discontinued bisacodyl [Dulcolax (bisacodyl)] 5 mg tablet,delayed release (DR/EC) 5 mg PO ONCE Qty: 4 0RF Rx Instructions: take per colonoscopy instructions polyethylene glycol 3350 17 gram/dose powder 238 g PO ONCE Qty: 238 0RF Rx Instructions: take per colonoscopy instructions Discharge Instructions Additional Instructions: Your colonoscopy went well today. There were no abnormal findings and the prep was great. If you have any questions or concerns please contact the general surgery office. 1. If tolerated, consume a soft, low fiber diet for 1-2 days. [address] not drive, drink alcohol, operate machinery, make critical decisions, or do activities that require coordination or balance for 24 hours. 3. Because air was put into your colon during the procedure, expelling air from your rectum (passing gas or farting) is normal. 4. You may not have a bowel movement for 1-3 days because of the colonoscopy prep. This is normal. 5. Go directly to the emergency room if you notice any of the following: Develop chills (warm to touch), or if you have a thermometer and your temperature is above 101 Difficulty breathing or difficultly swallowing Persistent vomiting Severe abdominal pain, other than gas cramps Severe chest pain Black, tarry stools Any bleeding ? exceeding one tablespoon 6. Call your physician if the site where your intravenous was started becomes red, swollen, painful, and warm to touch. 7. Your physician has reviewed your pre-procedure medications. Please continue to take those medications as previously ordered. You will be given specific information/education regarding any changes to your medications before leaving. Stand Alone Forms: Anesthesia Discharge Inst., Johnnie Franklin (DSU), Portal Information Activity:: Activity as Tolerated Diet:: As Tolerated Discharge Orders Discharge Orders: Discharge Order (Routine); Ordered 11/08/25 Ordered By: Milla Mistry DS: Diagnosis Discharge Diagnosis (1) Encounter for screening colonoscopy: Status: Acute
--- NOTE | 2025-11-08 10:50 | W.COLOREPORT ---
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 She reports no changes in bowel habits or presence of blood in her stool. The risks and benefits of the procedure were discussed with her and consent was obtained prior to the procedure. Prep: Miralax/Dulcolax Procedure Start Time: 10:24 Procedure End Time: 10:39 Retraction Time: 11 Findings: Normal colonoscopy. Procedure Description: Informed consent was obtained. The patient was taken to the endoscopy suite and placed in the left lateral decubitus position. After adequate intravenous sedation, digital rectal exam was performed, which was normal. A colonoscope was inserted into the rectum and easily negotiated to the cecum. The ileocecal valve and appendiceal orifice were identified. The entire colonic mucosa was then carefully circumferentially inspected upon slow withdrawal of the scope. The entire colon appeared normal. Retroflexion in the rectum was unremarkable. The patient tolerated the procedure well with no complications. Postoperatively, the patient was transferred to the recovery room in stable condition. [place] Bowel Prep [place] Bowel Prep Right Colon: 3 Left Colon: 3 Transverse Colon: 3 Total Score: 9
[2025-11-08 11:04] VITALS: BP 106/70; PULSE 65; RESP 16; TEMP 36.6; O2SAT 100
--- NOTE | 2025-11-08 11:28 | W.ANESPOSTOP ---
Postoperative Evaluation Date, Time and Location Date Performed: 11/08/25 Time Performed: 11:28 Patient Location: Day Surgery Unit Vital Signs Most Recent Imported Vital Signs: Most Recent Vital Signs Temp Pulse Resp BP Pulse Ox 36.1 C L 70 14 97/64 L 100 11/08/25 10:42 11/08/25 10:42 11/08/25 10:42 11/08/25 10:42 11/08/25 10:42 Pain Score Most Recent Pain Score: Most Recent Pain Score Pain Level 0 11/08/25 10:42 Assessment Mental Status: Awake (Alert & Oriented to Patient Baseline) Airway and Respiratory Function: Patent airway with normal (patient baseline) respiratory exam Cardiovascular Function: Hemodynamically Stable Hydration Status: Adequately Hydrated Nausea & Vomiting: No Nausea or Vomiting Pain: Pt. Denies Any Pain Peripheral Nerve Block: Patient did not receive a nerve block
== END 2025-11-08 11:28 | disposition home or self-care (01) ==
PROVIDERS: PCP Nurse Practitioner Family; Visit Provider Student in an Organized Health Care Education/Training Program
PROC: 0DJD8ZZ Inspection of Lower Intestinal Tract, Via Natural or Artificial Opening Endoscopic (ICD-10-PCS; CPT 45378; principal; 2025-11-08 09:00)
DX: Z12.11 Encounter for screening for malignant neoplasm of colon (principal); Z15.09 Genetic susceptibility to other malignant neoplasm
CPT/HCPCS: 45378; 81025; J2405; J2704